=== PATIENT | male | born 1980 | race Caucasian/White ===

== ENCOUNTER 2017-07-19 13:38 | Emergency (ER) | payer MEDICAID ==
[2017-07-19 13:55] VITALS: BP 114/69
--- NOTE | 2017-07-19 14:20 | EDM.PDOC ---
ED HPI GENERAL MEDICAL PROBLEM - General Chief Complaint: ENT Problem Stated Complaint: RIGHT SIDE NECK SWOLLEN GLAND Time Seen by Provider: 07/19/17 14:00 Source of Information: Reports: Patient History Limitations: Reports: No Limitations - History of Present Illness INITIAL COMMENTS - FREE TEXT/NARRATIVE: 36-year-old male with a slowly growing enhancing lesion in his right neck for the past 6-8 weeks. It's becoming more painful. He has an appointment with ENT in [place] in 3 days but doesn't think he can wait. No fevers or chills, no significant sore throat. Pain is radiating up into the ear and is getting headaches. No overlying erythema or warmth. Onset: Gradual Duration: Week(s): (6-8 weeks) Location: Reports: Neck Neck Pain Score (Numeric/FACES): 4 - Related Data Allergies Allergy/AdvReac Type Severity Reaction Status Date / Time No Known Allergies Allergy Verified 08/12/15 21:24 Home Meds: Home Meds Albuterol Sulfate [Ventolin Hfa] 1 puff IN ASDIRECTED PRN 07/14/15 [History] Montelukast Sodium [Singulair] 10 mg PO DAILY 07/14/15 [History] Albuterol Sulfate 1 dose NEB QID 08/21/15 [History] Albuterol/Ipratropium [DuoNeb 3.0-0.5 MG/3 ML] 3 ml .XX QID PRN #120 neb [Rx] Past Medical History HEENT History: Reports: Allergic Rhinitis, Impaired Vision Respiratory History: Reports: Asthma Neurological History: Reports: Concussion - Infectious Disease History Infectious Disease History: Reports: Chicken Pox Social & Family History - Tobacco Use Smoking Status *Q: Never Smoker Years of Tobacco use: 10 Second Hand Smoke Exposure: No - Caffeine Use Caffeine Use: Reports: Coffee, Energy Drinks, Soda, Tea - Alcohol Use Days Per Week of Alcohol Use: 3 Number of Drinks Per Day: 2 Total Drinks Per Week: 6 - Recreational Drug Use Recreational Drug Use: No - Living Situation & Occupation Living situation: Reports: with Significant Other Occupation: Student ED ROS ENT - Review of Systems Review Of Systems: See Below Constitutional: Denies: Fever, Chills HEENT: Reports: Other (Neck pain and stiffness from mass effect). Denies: Throat Pain Respiratory: Denies: Shortness of Breath GI/Abdominal: Denies: Abdominal Pain Musculoskeletal: Reports: Neck Pain Skin: Reports: No Symptoms Neurological: Reports: Headache ED EXAM, ENT - Physical Exam Exam: See Below Exam Limited By: No Limitations General Appearance: Alert, Mild Distress (Looks very uncomfortable) Eye Exam: Bilateral Eye: EOMI Head: Atraumatic Neck: Other (Large very tender smooth subcutaneous mass on the lateral right neck extending from the angle of the mandible to the lower neck) Cardiovascular: Regular Rate, Rhythm Neurological: Alert, Oriented Skin: Warm, Dry. No: Erythema Course - Vital Signs Last Recorded V/S: Last Vital Signs Temp 97.9 F 07/19/17 14:03 Pulse 82 07/19/17 14:03 Resp 16 07/19/17 14:03 BP 114/69 07/19/17 14:03 Pulse Ox 98 07/19/17 14:03 - Orders/Labs/Meds Meds: Medications Discontinued Medications Generic Name Dose Route Start Last Admin Trade Name Freq PRN Reason Stop Dose Admin Sodium Chloride 74 mls @ 3 mls/sec 07/19/17 14:45 07/19/17 14:39 Normal Saline IV 3 mls/sec ASDIRECTED PAZ Administration Iopamidol 100 ml 07/19/17 14:31 07/19/17 14:39 Isovue-300 (61%) IV 07/20/17 14:32 100 ml . DIRECTED PRN Administration RADIOLOGY EXAM - Re-Assessments/Exams Free Text/Narrative Re-Assessment/Exam: 07/19/17 14:20 An IV was started, recent labs showed no renal impairment so an IV contrast enhanced CT scan will be obtained of the cervical soft tissue. 07/19/17 15:19 CT confirmed a fairly large mass in the right submandibular area. I called ENT on-call to get advice and fortunately Dr. Barnhart was on-call and is in [place] at this time and can see the patient this afternoon to discuss treatment options. Patient was sent over to the clinic to discuss results with ENT. Departure - Departure Time of Disposition: 15:31 Disposition: Home, Self-Care 01 Condition: Fair Clinical Impression: Mass of lateral neck - Discharge Information Referrals: PCP,None [Primary Care Provider] - Forms: ED Department Discharge Care Plan Goals: Go directly over to the clinic to see Dr. Barnhart for a consultation regarding the CT results.
[2017-07-19] MEDS ORDERED: Iopamidol 612 MG/ML 100 ML Bottle IV PRN (14:31)
--- NOTE | 2017-07-19 15:07 | CT ---
CT soft tissue neck. Total DLP 349 Findings: Low attenuated mass measuring 3.4 cm AP x 3.2 cm transverse at the right angle of the belkis ble. This is deep to the parotid gland, posterior to the submandibular gland and lateral to the carot id sheath. Mildly thickened rim with hazy fat stranding surrounding it. The rim enhances as well. Dir ectly posterior to the mass are numerous lymph nodes. One is definitively enlarged. This mass also is predominantly anterior to the sternocleidomastoid muscle. Parotid glands are within normal limits. S ubmandibular glands are within normal limits. Nasopharyngeal mucosa within normal limits. The Pharyngeal fat planes are preserved. No definite tonsillar enlargement. Focal cords appear symmetric. Thyroid gland is within normal limits. Scattered left posterior cervical space lymph nodes are evide nt. Mastoid air cells are are clear. Subcutaneous nodule of the back measuring 27 mm in length x 11 mm in thickness with a calcification. This is at the C7 level. This is indeterminant can be seen in a subcutaneous mass such as a epidermoi d inclusion cyst. Correlate clinically. Lung apices are clear. Impression: 1. Low attenuated mass at the angle of the mandible as described above. 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 However a necrotic, reactive or malignant lymph node could have a simil ar appearance. 2. Subcutaneous nodule of the back as described above.
== END 2017-07-19 15:31 | disposition home or self-care (01) ==
LOC: JP.ED 13:38
DX: R22.1 Localized swelling, mass and lump, neck (principal); J45.909 Unspecified asthma, uncomplicated
CPT/HCPCS: 70491; 99284; J7030; Q9967

== ENCOUNTER 2018-12-16 08:25 | Emergency (ER) | payer SELFPAY ==
[2018-12-16] MEDS ORDERED: Ondansetron 4 MG/2 ML SDV IVPUSH ONE (08:59)
[2018-12-16] MEDS ORDERED: Lactated Ringers 1,000 ML IV SCH (09:00)
--- NOTE | 2018-12-16 09:02 | EDM.PDOC ---
ED HPI GENERAL MEDICAL PROBLEM - General Chief Complaint: Fever Stated Complaint: FLU???VOMITING Time Seen by Provider: 12/16/18 08:54 Source of Information: Reports: Patient, RN Notes Reviewed History Limitations: Reports: No Limitations - History of Present Illness INITIAL COMMENTS - FREE TEXT/NARRATIVE: 38-year-old gentleman presents emergency department today complaint of cough and fever, he has been ill treat for 5 days kids at home have been sick as well with her illness has resolved. Fevers at home, yellow sputum production does feel short of breath at times, past medical history of asthma, no flu shot this year Lower Back Pain Score (Numeric/FACES): 5 - Related Data Allergies Allergy/AdvReac Type Severity Reaction Status Date / Time No Known Allergies Allergy Verified 12/16/18 08:46 Home Meds: Home Meds Albuterol Sulfate [Ventolin Hfa] 1 puff IN ASDIRECTED PRN 07/14/15 [History] Montelukast Sodium [Singulair] 10 mg PO DAILY 07/14/15 [History] Albuterol Sulfate 1 dose NEB QID 08/21/15 [History] Albuterol/Ipratropium [DuoNeb 3.0-0.5 MG/3 ML] 3 ml .XX QID PRN #120 neb [Rx] Azithromycin [Zithromax 200 MG/5 ML Susp] 200 mg PO DAILY #6 bottle 12/16/18 [Rx ] Past Medical History HEENT History: Reports: Allergic Rhinitis, Impaired Vision Respiratory History: Reports: Asthma Neurological History: Reports: Concussion - Infectious Disease History Infectious Disease History: Reports: Chicken Pox Social & Family History - Tobacco Use Smoking Status *Q: Never Smoker - Caffeine Use Caffeine Use: Reports: Coffee - Recreational Drug Use Recreational Drug Use: No - Living Situation & Occupation Living situation: Reports: with Significant Other Occupation: Student ED ROS GENERAL - Review of Systems Review Of Systems: See Below Constitutional: Reports: Fever, Chills, Weakness HEENT: Reports: No Symptoms Respiratory: Reports: Shortness of Breath, Cough, Sputum. Denies: Wheezing Cardiovascular: Reports: Dyspnea on Exertion GI/Abdominal: Reports: No Symptoms : Reports: No Symptoms Musculoskeletal: Reports: No Symptoms Skin: Reports: No Symptoms ED EXAM, GENERAL - Physical Exam Exam: See Below Free Text/Narrative:: General: Male, not in any distress, alert and oriented x3 HEENT: head is atraumatic normocephalic, eyes pupils equal round reactive to light, sclera clear no conjunctivitis appreciated. Ears tympanic membranes clear and vargas landmarks and light reflex are present bilaterally canals are clear. Nose no septal deviation, nares are clear, no blood present. Mouth mucosa is moist and pink no erythema or exudate noted in soft palate, tongue is midline uvula is midline, dentition is intact. Neck: Supple no thyromegaly no tracheal deviation. Nodes: Cervical nodes subclavicular nodes nontender no palpable lymphadenopathy noted. Lungs: clear to auscultation bilaterally with symmetrical respirations, no adventitious noise appreciated. CV: Regular rate and rhythm S1 and S2 appreciated no murmurs rubs or gallops noted. Abdomen: Soft, nontender, no palpable masses or organomegaly appreciated, no distention no guarding bowel sounds are present, . Neuro: GCS 15 Skin: Warm and dry, intact Extremities: No lower extremity edema appreciated, Course - Vital Signs Last Recorded V/S: Last Vital Signs Temp 102.4 F H 12/16/18 08:47 Pulse 85 12/16/18 09:00 Resp 16 12/16/18 08:47 BP 115/66 12/16/18 09:00 Pulse Ox 95 12/16/18 09:00 - Orders/Labs/Meds Orders: Active Orders 24 hr Category Date Time Status Vital Signs [RC] Q1H Care 12/16/18 08:58 Active Lactated Ringers [Ringers, Lactated] 1,000 ml Med 12/16/18 09:00 Active IV ASDIRECTED Medication Orders Lactated Ringer's (Ringers, Lactated) 1,000 mls @ 999 mls/hr IV ASDIRECTED PAZ Last Admin: 12/16/18 09:18 Dose: 999 mls/hr Labs: Laboratory Tests 12/16/18 12/16/18 12/16/18 Range/Units 09:10 09:10 09:10 WBC 6.4 (4.5-11.0) K/uL RBC 5.25 (4.30-5.90) M/uL Hgb 15.8 H (12.0-15.0) g/dL Hct 44.7 (40.0-54.0) % MCV 85 (80-98) fL MCH 30 (27-31) pg MCHC 35 (32-36) % Plt Count 175 (150-400) K/uL Neut % (Auto) 73 H (36-66) % Lymph % (Auto) 14 L (24-44) % Vance % (Auto) 12 H (2-6) % Eos % (Auto) 1 L (2-4) % Baso % (Auto) 1 (0-1) % Sodium 135 L (140-148) mmol/L Potassium 4.0 (3.6-5.2) mmol/L Chloride 100 (100-108) mmol/L Carbon Dioxide 24 (21-32) mmol/L Anion Gap 15.0 H (5.0-14.0) mmol/L BUN 11 (7-18) mg/dL Creatinine 1.0 (0.8-1.3) mg/dL Est Cr Clr Drug Dosing TNP Estimated GFR (MDRD) > 60 (>60) Glucose 110 H (74-106) mg/dL Lactic Acid 1.0 (0.4-2.0) mmol/L Calcium 9.1 (8.5-10.1) mg/dL Total Bilirubin 0.7 D (0.2-1.0) mg/dL AST 35 (15-37) U/L ALT 39 D (12-78) U/L Alkaline Phosphatase 71 (46-116) U/L C-Reactive Protein 9.03 H (0.0-0.3) mg/dL Total Protein 7.7 (6.4-8.2) g/dL Albumin 3.5 (3.4-5.0) g/dL Globulin 4.2 H (2.3-3.5) g/dL Albumin/Globulin Ratio 0.8 L (1.2-2.2) Meds: Medications Generic Name Dose Route Start Last Admin Trade Name Freq PRN Reason Stop Dose Admin Lactated Ringer's 1,000 mls @ 999 mls/hr 12/16/18 09:00 12/16/18 09:18 Ringers, Lactated IV 999 mls/hr ASDIRECTED PAZ Administration Discontinued Medications Generic Name Dose Route Start Last Admin Trade Name Freq PRN Reason Stop Dose Admin Ibuprofen 600 mg 12/16/18 09:49 12/16/18 09:54 Motrin PO 12/16/18 09:50 600 mg ONETIME ONE Administration Ondansetron HCl 4 mg 12/16/18 08:59 12/16/18 09:18 Zofran IVPUSH 12/16/18 09:00 4 mg ONETIME ONE Administration Departure - Departure Time of Disposition: 10:09 Disposition: Home, Self-Care 01 Condition: Fair Clinical Impression: Pneumonia Qualifiers: Pneumonia type: due to unspecified organism Laterality: right Lung location: lower lobe of lung Qualified Code(s): J18.1 - Lobar pneumonia, unspecified organism - Discharge Information Prescriptions: Azithromycin [Zithromax 200 MG/5 ML Susp] 200 mg PO DAILY #6 bottle Referrals: PCP,None [Primary Care Provider] - Forms: ED Department Discharge Additional Instructions: Take full course of antibiotics, use Tylenol or Motrin as needed for fever control use your inhalers at home as needed, Please followup with your primary care provider in 3-5 days if not better, please call return to the emergency department with worsening of symptoms. - My Orders Last 24 Hours: My Active Orders 12/16/18 08:58 Vital Signs [RC] Q1H 12/16/18 09:00 Lactated Ringers [Ringers, Lactated] 1,000 ml IV ASDIRECTED - Assessment/Plan Last 24 Hours: My Active Orders 12/16/18 08:58 Vital Signs [RC] Q1H 12/16/18 09:00 Lactated Ringers [Ringers, Lactated] 1,000 ml IV ASDIRECTED Plan: Assessment Acuity = acute Site and laterality = right lower lobe pneumonia Etiology = probable bacterial cause Manifestations = fever Location of injury = Home Lab values = CBC, CMP, lactic acid within normal limits influenza was negative CRP elevated 9.0 chest x-ray describes pneumonia above Plan Did review lab work chest x-ray results with him he's can be placed on azithromycin 5 day course faxed to [facility] PRIMARY care in 3-5 days if no improvement This note was dictated using [employer] voice recognition software please call with any questions on syntax or grammar.
--- NOTE | 2018-12-16 09:45 | CRLCR ---
INDICATION: Cough and fever TECHNIQUE: Chest 2 views COMPARISON: August 21, 2015 FINDINGS: Cardiovascular and mediastinum: Heart size and vasculature are normal in caliber and appearance. Lungs and pleural spaces: Airspace infiltrates are present in the right lower lobe and left upper lobe. No effusions and no pneumothorax. Bones and soft tissues: No significant findings. IMPRESSION: Right lower lobe and left upper lobe pneumonia. Dictated by Eric Stephenson MD @ Dec 16 2018 9:41AM Signed by Dr. Eric Stephenson @ Dec 16 2018 9:44AM
[2018-12-16] MEDS ORDERED: Ibuprofen 600 MG Tab PO ONE (09:49)
[2018-12-16 10:17] VITALS: BP 107/56
== END 2018-12-16 10:28 | disposition home or self-care (01) ==
LOC: JP.ED 08:25
DX: J18.1 Lobar pneumonia, unspecified organism (principal); J45.909 Unspecified asthma, uncomplicated; Z79.899 Other long term (current) drug therapy
CPT/HCPCS: 36415; 71046; 80053; 83605; 85025; 86140; 87804; 96361; 96374; 99283; A9270; J2405; J7120